=== PATIENT | female | born 1980 | race African-American/Black ===

== ENCOUNTER 2017-03-27 01:25 | Emergency (ER) | payer OTHER ==
[~2017-03-27] VITALS: Ht 175.3 cm; Wt 77.1 kg
[~2017-03-27 01:25] MED LIST: BACTRIM DS TAB1 EACH PO; DOXYCYCLINE 10100 MG PO; NAPROSYN500 MG PO; NOHOMEMEDICATIONS; NORCO 5-325 TA1 EACH PO; TOBRAMYCIN SULFA5 ML OP; TRAMADOL 50 MG50 MG PO
[2017-03-27 01:31] VITALS: BP 131/93
[2017-03-27] MEDS ORDERED: NORCO 5-325 TA1 EACH PO (01:43)
[2017-03-27] MEDS ORDERED: PENICILLIN VK500 M1 PO (01:43)
== END 2017-03-27 01:57 | disposition home or self-care (01) ==
LOC: ER 01:25
DX: K02.9 Dental caries, unspecified (principal); F17.200 Nicotine dependence, unspecified, uncomplicated

== ENCOUNTER 2017-04-22 15:08 | Emergency (ER) | payer OTHER ==
[~2017-04-22] VITALS: Ht 175.3 cm; Wt 77.1 kg
[~2017-04-22 15:08] MED LIST changes: +PENICILLIN VK500 M1 PO
[2017-04-22] MEDS ORDERED: PENICILLIN V P500 MG PO (15:41)
[2017-04-22] MEDS ORDERED: MOBIC15 MG PO (15:41)
[2017-04-22 16:22] VITALS: BP 140/85
== END 2017-04-22 16:23 | disposition home or self-care (01) ==
LOC: ER 15:08
DX: K02.9 Dental caries, unspecified (principal); F17.210 Nicotine dependence, cigarettes, uncomplicated

== ENCOUNTER 2017-05-09 12:48 | Inpatient (IN) | payer OTHER ==
[~2017-05-09] VITALS: Ht 175.3 cm; Wt 92.2 kg
[2017-05-09] VITALS (16 sets, daily range): BP systolic 120–157; BP diastolic 84–102
[~2017-05-09 12:48] MED LIST changes: +CLEOCIN HCL150 MG PO; +MOBIC15 MG PO; +PENICILLIN V P500 MG PO
[2017-05-09 13:18] LABS: ABSOLUTE NEUTROPHILS 13.1 thou/uL (1.4-8.2); BASOPHILS 0.6 % (0.0-2.0); EOSINOPHILS 2.3 % (0.0-3.0); HEMATOCRIT 38.7 % (37.0-47.0); HEMOGLOBIN 13.2 gm/dL (12.0-15.0); LYMPHOCYTES 12.5 % (24.0-44.0); MCH 29.8 pg (26.0-34.0); MCV 87.6 fL (80.0-100.0); MONOCYTES 6.7 % (1.0-8.0); PLATELET COUNT 561 thou/uL (150-400); POLYS 77.9 % (36.0-66.0); RBC 4.42 mil/uL (4.20-5.00); RDW 14.1 % (10.5-14.5); WBC 16.9 thou/uL (4.0-11.0)
[2017-05-09 13:23] LABS: MANUAL DIFF NO
[2017-05-09 13:24] LABS: CALCIUM 9.4 mg/dL (8.5-10.1); CREATININE 0.9 mg/dL (0.6-1.0)
[2017-05-09 13:29] LABS: ALBUMIN 3.1 g/dL (3.4-5.0); TOTAL BILIRUBIN 0.8 mg/dL (<0.1-1.0); TOTAL PROTEIN 7.8 g/dL (6.4-8.2)
[2017-05-10] VITALS (18 sets, daily range): BP systolic 125–150; BP diastolic 74–110
[2017-05-10 04:33] LABS: HEMATOCRIT 38.4 % (37.0-47.0); HEMOGLOBIN 12.9 gm/dL (12.0-15.0); MCHC 33.7 g/dL (28.0-37.0); MCV 89.2 fL (80.0-100.0); RBC 4.3 mil/uL (4.20-5.00); RDW 14.1 % (10.5-14.5); WBC 17.7 thou/uL (4.0-11.0)
[2017-05-10 04:56] LABS: CALCIUM 8.5 mg/dL (8.5-10.1); CREATININE 0.7 mg/dL (0.6-1.0); POTASSIUM 4.1 mmol/L (3.5-5.1)
[2017-05-11 03:50] VITALS: BP 128/75
[2017-05-11 08:00] VITALS: BP 119/73
[2017-05-11 17:38] VITALS: BP 129/86
[2017-05-11 20:00] VITALS: BP 132/89
[2017-05-12 04:00] VITALS: BP 150/88
[2017-05-12 08:35] VITALS: BP 143/93
[2017-05-12 15:36] VITALS: BP 134/69
[2017-05-12 20:00] VITALS: BP 142/88
[2017-05-13 04:00] VITALS: BP 130/80
[2017-05-13 08:30] VITALS: BP 133/89
[2017-05-13] MEDS ORDERED: AUGMENTIN 875-1 EACH PO (14:01)
[2017-05-13] MEDS ORDERED: MEDROLDOSEPACK PO (14:03)
[2017-05-13 14:10] VITALS: BP 133/89
== END 2017-05-13 14:50 | disposition home or self-care (01) | DRG 872 ==
LOC: ER 12:48 → EROBS 14:28 → ICU 14:28 → 5S 05-10 15:52
PROVIDERS: Emergency Medicine; Internal Medicine
DX: A41.9 Sepsis, unspecified organism (principal); L02.11 Cutaneous abscess of neck; L03.211 Cellulitis of face; K12.2 Cellulitis and abscess of mouth; M27.2 Inflammatory conditions of jaws; F17.210 Nicotine dependence, cigarettes, uncomplicated; K04.7 Periapical abscess without sinus; Z79.899 Other long term (current) drug therapy
CPT/HCPCS: 10078; 10785

== ENCOUNTER 2018-02-09 09:45 | Emergency (ER) | payer OTHER ==
[~2018-02-09] VITALS: Ht 175.3 cm; Wt 81.7 kg
[~2018-02-09 09:45] MED LIST changes: +AUGMENTIN 875-1 EACH PO; +IBUPROFEN 600600 M1 PO; +MEDROLDOSEPACK PO
[2018-02-09] MEDS ORDERED: IBU600 MG PO (10:40)
[2018-02-09] MEDS ORDERED: HYDROCODONE-AP1 EAC6 PO (10:40)
== END 2018-02-09 11:47 | disposition home or self-care (01) ==
LOC: ER 09:45
DX: S92.355A Nondisplaced fracture of fifth metatarsal bone, left foot, initial encounter for closed fracture (principal); F17.210 Nicotine dependence, cigarettes, uncomplicated; W18.39XA Other fall on same level, initial encounter; Y93.89 Activity, other specified; Y92.89 Other specified places as the place of occurrence of the external cause; Y99.8 Other external cause status

== ENCOUNTER 2019-08-14 16:24 | Emergency (ER) | payer OTHER ==
[~2019-08-14] VITALS: Ht 175.3 cm; Wt 79.4 kg
[~2019-08-14 16:24] MED LIST changes: +HYDROCODONE-AP1 EAC6 PO; +IBU600 MG PO; +IBUPROFEN 800800 MG PO
[2019-08-14] MEDS ORDERED: ACETAMINOPHEN325 M1 PO (16:43)
[2019-08-14 19:03] LABS: ABSOLUTE NEUTROPHILS 5.8 thou/uL (1.4-8.2); BASOPHILS 0.9 % (0.0-2.0); EOSINOPHILS 4.8 % (0.0-3.0); HEMATOCRIT 41.9 % (37.0-47.0); HEMOGLOBIN 13.7 gm/dL (12.0-15.0); LYMPHOCYTES 20.7 % (24.0-44.0); MCH 29.4 pg (26.0-34.0); MCHC 32.8 g/dL (28.0-37.0); MCV 89.6 fL (80.0-100.0); MONOCYTES 7.8 % (1.0-8.0); PLATELET COUNT 297 thou/uL (150-400); POLYS 65.8 % (36.0-66.0); RBC 4.67 mil/uL (4.20-5.00); RDW 14.6 % (10.5-14.5); WBC 8.7 thou/uL (4.0-11.0)
[2019-08-14 19:11] LABS: CALCIUM 9.6 mg/dL (8.5-10.1); POTASSIUM 4.1 mmol/L (3.5-5.1)
[2019-08-14] MEDS ORDERED: NAPROSYN500 MG PO (20:38)
[2019-08-14] MEDS ORDERED: ULTRAM 50MG TAB50 MG PO (20:38)
[2019-08-14 20:57] LABS: URINE BILIRUBIN NEGATIVE (Negative); URINE BLOOD 3+ (Negative); URINE CLARITY CLEAR; URINE COLOR YELLOW; URINE GLUCOSE-RANDOM* NEGATIVE (Negative); URINE KETONES TRACE (Negative); URINE LEUKOCYTES-REFLEX 1+ (Negative); URINE NITRITE-REFLEX NEGATIVE (Negative); URINE PROTEIN (DIPSTICK) TRACE (Negative); URINE SPECIFIC GRAVITY 1.025 (1.005-1.035)
[2019-08-14 21:10] LABS: BACTERIA-REFLEX 1-9 Few /HPF (None Seen); CASTS None Seen /LPF (None Seen); CRYSTALS None Seen /LPF (None Seen); SQUAMOUS 0-3 Few /LPF (0-3); URINE RBC >20 Many /HPF (0-2); URINE WBC-REFLEX 6-15 Few /HPF (0-5)
[2019-08-14 21:29] VITALS: BP 129/85
== END 2019-08-14 21:30 | disposition home or self-care (01) ==
LOC: ER 16:24
PROVIDERS: Physician Assistant
DX: N93.8 Other specified abnormal uterine and vaginal bleeding (principal); F17.210 Nicotine dependence, cigarettes, uncomplicated

== ENCOUNTER 2019-08-20 18:11 | Emergency (ER) | payer OTHER ==
[~2019-08-20] VITALS: Ht 175.3 cm; Wt 90.7 kg
[~2019-08-20 18:11] MED LIST changes: +ACETAMINOPHEN325 M1 PO; +ULTRAM 50MG TAB50 MG PO
[2019-08-20 19:00] LABS: ABSOLUTE NEUTROPHILS 7.9 thou/uL (1.4-8.2); BASOPHILS 0.6 % (0.0-2.0); EOSINOPHILS 1.1 % (0.0-3.0); HEMATOCRIT 36.2 % (37.0-47.0); HEMOGLOBIN 12.2 gm/dL (12.0-15.0); LYMPHOCYTES 12.1 % (24.0-44.0); MCH 29.5 pg (26.0-34.0); MCHC 33.7 g/dL (28.0-37.0); MCV 87.5 fL (80.0-100.0); MONOCYTES 7.9 % (1.0-8.0); PLATELET COUNT 346 thou/uL (150-400); POLYS 78.3 % (36.0-66.0); RBC 4.14 mil/uL (4.20-5.00); RDW 14.2 % (10.5-14.5); WBC 10.1 thou/uL (4.0-11.0)
[2019-08-20 19:06] LABS: CALCIUM 9.4 mg/dL (8.5-10.1); CREATININE 0.8 mg/dL (0.6-1.0); POTASSIUM 3.9 mmol/L (3.5-5.1)
[2019-08-20] MEDS ORDERED: NOHOMEMEDICATIONS (19:09)
[2019-08-20 19:13] LABS: ALBUMIN 2.7 g/dL (3.4-5.0); DIRECT BILIRUBIN 0.2 mg/dL (<0.1-0.3); TOTAL BILIRUBIN 0.5 mg/dL (<0.1-1.0); TOTAL PROTEIN 7.3 g/dL (6.4-8.2)
[2019-08-20] MEDS ORDERED: PREDNISONE 20 M20 MG PO (21:23)
[2019-08-20 21:26] VITALS: BP 144/87
== END 2019-08-20 21:45 | disposition home or self-care (01) ==
LOC: ER 18:11
PROVIDERS: Nurse Practitioner
DX: R07.81 Pleurodynia (principal); N93.9 Abnormal uterine and vaginal bleeding, unspecified; R11.2 Nausea with vomiting, unspecified; F17.210 Nicotine dependence, cigarettes, uncomplicated

== ENCOUNTER 2019-08-25 16:40 | Emergency (ER) | payer OTHER ==
[~2019-08-25] VITALS: Ht 175.3 cm; Wt 90.7 kg
[~2019-08-25 16:40] MED LIST changes: +PREDNISONE 20 M20 MG PO
[2019-08-25 16:48] VITALS: BP 125/88
== END 2019-08-25 18:05 | disposition home or self-care (01) ==
LOC: ER 16:40
DX: A54.9 Gonococcal infection, unspecified (principal); A74.9 Chlamydial infection, unspecified; F17.210 Nicotine dependence, cigarettes, uncomplicated; Z76.0 Encounter for issue of repeat prescription; Z98.890 Other specified postprocedural states

== ENCOUNTER 2020-08-03 20:29 | Emergency (ER) | payer OTHER ==
[~2020-08-03] VITALS: Ht 175.3 cm; Wt 81.7 kg
[2020-08-03 22:16] LABS: ABSOLUTE NEUTROPHILS 13.1 thou/uL (1.4-8.2); BASOPHILS 0.3 % (0.0-2.0); HEMATOCRIT 39.6 % (37.0-47.0); HEMOGLOBIN 13.1 gm/dL (12.0-15.0); LYMPHOCYTES 14.1 % (24.0-44.0); MCH 29.3 pg (26.0-34.0); MCV 88.8 fL (80.0-100.0); PLATELET COUNT 326 thou/uL (150-400); POLYS 79.6 % (36.0-66.0); RBC 4.46 mil/uL (4.20-5.00); RDW 14.6 % (10.5-14.5); WBC 16.4 thou/uL (4.0-11.0)
[2020-08-03 22:18] LABS: CALCIUM 9.2 mg/dL (8.5-10.1); CREATININE 1.2 mg/dL (0.6-1.0); POTASSIUM 3.7 mmol/L (3.5-5.1)
[2020-08-03 22:23] LABS: ALBUMIN 3.6 g/dL (3.4-5.0); TOTAL BILIRUBIN 1.5 mg/dL (0.2-1.0); TOTAL PROTEIN 8.1 g/dL (6.4-8.2)
[2020-08-03 23:48] LABS: URINE BILIRUBIN NEGATIVE (Negative); URINE BLOOD NEGATIVE (Negative); URINE CLARITY SL CLOUDY; URINE COLOR YELLOW; URINE GLUCOSE-RANDOM* NEGATIVE (Negative); URINE KETONES TRACE (Negative); URINE NITRITE-REFLEX NEGATIVE (Negative); URINE PROTEIN (DIPSTICK) NEGATIVE (Negative); URINE SPECIFIC GRAVITY 1.015 (1.005-1.035); URINE UROBILINOGEN 0.2 E.U./dl (0.2-1.0)
[2020-08-04 00:10] LABS: URINE LEUKOCYTES-REFLEX 1+ (Negative)
[2020-08-04 01:01] LABS: BACTERIA-REFLEX 1-9 Few /HPF (None Seen); CASTS None Seen /LPF (None Seen); CRYSTALS None Seen /LPF (None Seen); MUCUS 4-6 Moderate strn/LPF (None Seen); SQUAMOUS 0-3 Few /LPF (0-3); URINE RBC 3-10 Few /HPF (0-2); URINE WBC-REFLEX 6-15 Few /HPF (0-5); WBC CLUMPS Few (None Seen)
[2020-08-04] MEDS ORDERED: MOBIC15 MG PO (01:08)
[2020-08-04] MEDS ORDERED: KEFLEX500 M1 PO (01:08)
[2020-08-04 01:26] VITALS: BP 153/79
== END 2020-08-04 01:27 | disposition home or self-care (01) ==
LOC: ER 20:29
PROVIDERS: Emergency Medicine
DX: K59.00 Constipation, unspecified (principal); N39.0 Urinary tract infection, site not specified; A59.9 Trichomoniasis, unspecified; F17.210 Nicotine dependence, cigarettes, uncomplicated

== ENCOUNTER 2020-09-10 21:19 | Inpatient (IN) | payer OTHER ==
[~2020-09-10] VITALS: Ht 175.3 cm; Wt 102.5 kg
[~2020-09-10 21:19] MED LIST changes: +KEFLEX500 M1 PO
[2020-09-10 21:29] VITALS: BP 128/84
[2020-09-10 21:41] LABS: URINE BILIRUBIN NEGATIVE (Negative); URINE BLOOD 3+ (Negative); URINE CLARITY SL CLOUDY; URINE COLOR YELLOW; URINE GLUCOSE-RANDOM* NEGATIVE (Negative); URINE KETONES NEGATIVE (Negative); URINE LEUKOCYTES-REFLEX 2+ (Negative); URINE NITRITE-REFLEX NEGATIVE (Negative); URINE PROTEIN (DIPSTICK) 2+ (Negative); URINE SPECIFIC GRAVITY 1.015 (1.005-1.035)
[2020-09-10 21:48] LABS: CASTS None Seen /LPF (None Seen); CRYSTALS None Seen /LPF (None Seen); SQUAMOUS 4-10 Moderate /LPF (0-3)
[2020-09-10 21:49] LABS: BACTERIA-REFLEX 1-9 Few /HPF (None Seen); URINE RBC >20 Many /HPF (0-2); URINE WBC-REFLEX >25 Many /HPF (0-5)
[2020-09-10 21:58] LABS: ABSOLUTE NEUTROPHILS 10.6 thou/uL (1.4-8.2); BASOPHILS 0.5 % (0.0-2.0); EOSINOPHILS 0.1 % (0.0-3.0); HEMATOCRIT 39.6 % (37.0-47.0); LYMPHOCYTES 11.5 % (24.0-44.0); MCHC 32.9 g/dL (28.0-37.0); MCV 88.3 fL (80.0-100.0); MONOCYTES 6.8 % (1.0-8.0); PLATELET COUNT 256 thou/uL (150-400); POLYS 81.1 % (36.0-66.0); RBC 4.48 mil/uL (4.20-5.00); RDW 14.9 % (10.5-14.5)
[2020-09-10 22:07] LABS: CALCIUM 9.2 mg/dL (8.5-10.1); CREATININE 1.3 mg/dL (0.6-1.0); POTASSIUM 4.3 mmol/L (3.5-5.1)
[2020-09-10 22:13] LABS: ALBUMIN 3.3 g/dL (3.4-5.0); TOTAL BILIRUBIN 1.2 mg/dL (0.2-1.0); TOTAL PROTEIN 7.7 g/dL (6.4-8.2)
[2020-09-11] VITALS (7 sets, daily range): BP systolic 127–158; BP diastolic 59–94
--- NOTE | 2020-09-11 02:00 | NUR ---
Pt. admitted to the unit from the emergency room accompanied by staff. She is alert and oriented. Admission assessment and history is completed. Pt. c/o pain to right lateral side of her abdomen/back. After pt. settled to her room she did rest quietly.
[2020-09-11 09:47] LABS: HEMATOCRIT 35.3 % (37.0-47.0); HEMOGLOBIN 11.6 gm/dL (12.0-15.0); MCH 28.9 pg (26.0-34.0); MCHC 32.9 g/dL (28.0-37.0); MCV 87.7 fL (80.0-100.0); RBC 4.03 mil/uL (4.20-5.00); RDW 14.9 % (10.5-14.5); WBC 10.3 thou/uL (4.0-11.0)
[2020-09-11 09:58] LABS: CALCIUM 8.4 mg/dL (8.5-10.1); CREATININE 1.2 mg/dL (0.6-1.0); POTASSIUM 3.7 mmol/L (3.5-5.1)
--- NOTE | 2020-09-11 14:48 | NUR ---
ASSUMED PT CARE THIS AM. PT VSS, HAD AN ELEVATED TEMP THIS AM, GIVEN TYLENOL AND DECREASED. PT COMPLAINS OF PAIN IN THE RIGHT LOWER QUADRANT OF ABDOMEN, GIVEN PAIN MEDS PER EMAR AND RESPONDS WELL. PT TOLERATING FOOD WELL, DRINKING LOTS OF FLUIDS. PT AMBULATES TO THE BATHROOM. LOW FALL RISK. IV PATENT, FLUIDS INFUSING.
--- NOTE | 2020-09-12 06:00 | NUR ---
Pt. has rested quietly at short intervals during the night when checked on during frequent rounds. She c/o pain to her right side of lower abdomen that radiates to her back. Po and iv pain meds given with some relief (see emar). Ambulates to the bathroom with stand by assistance.
[2020-09-12 09:07] LABS: HEMOGLOBIN 11.5 gm/dL (12.0-15.0); MCH 28.6 pg (26.0-34.0); MCHC 32.7 g/dL (28.0-37.0); MCV 87.5 fL (80.0-100.0); RDW 14.6 % (10.5-14.5); WBC 7.4 thou/uL (4.0-11.0)
[2020-09-12 09:22] LABS: CALCIUM 8.4 mg/dL (8.5-10.1); CREATININE 0.9 mg/dL (0.6-1.0); MAGNESIUM 1.8 mg/dL (1.8-2.4); POTASSIUM 4.2 mmol/L (3.5-5.1)
--- NOTE | 2020-09-12 11:47 | NUR ---
ASSUMED CARE AT SHIFT CHANGE. ASSESSMENT PER CHART. REPORT GIVEN TO BRADLEY FISHER AT THIS TIME MY ASSIGNMENT HAS CHANGED.
[2020-09-12 17:07] VITALS: BP 140/93
[2020-09-12 17:08] VITALS: BP 159/77
[2020-09-12 19:55] VITALS: BP 143/89
--- NOTE | 2020-09-12 20:04 | NUR ---
ASSUMED CARE OF PATIENT AT 1200, REPORT RECEIVED FROM LISA/RN. PATIENT ALERT AND ORIENTED X 4. PATIENT SLEEPING UPON ARRIVAL TO THE ROOM. PATIENT WOKE UP CRYING, PAIN LEVEL 10/10, RIGHT SIDE OF ABDOMEN, FENTANYL 50 MCG IV GIVEN. NS AY 125CC/HR GOING PER RIGHT AC IV. PATIENT C/O NAUSEA AND PAIN AROUND 1745, ZOFRAN 4 MG IV GIVEN, AND HYDROCODONE 2 TABLETS GIVEN, PATIENT CONTINUES TO CRY, REAASURANCE GIVEN. PATIENT UP AD ALEXIS TO BATHROOM. REPORT GIVEN TO YARON/RN.
--- NOTE | 2020-09-12 22:16 | NUR ---
1900 ASSUMED CARE OF PT AFTER BEDSIDE REPORT. 1999 PT IS IN PAIN, 10/10 TO R ABDOMEN WITH MOVEMENT, BASELINE ASSESSMENT COMPLETED AND FENTANYL PER DR ORDER HAS HELPED WITH PAIN AND PT HAS EASED TO SLEEP. WILL CONTINUE TO MONITOR WITH HOURLY ROUNDING
[2020-09-13 06:57] LABS: HEMATOCRIT 34.9 % (37.0-47.0); HEMOGLOBIN 11.4 gm/dL (12.0-15.0); MCH 28.7 pg (26.0-34.0); MCHC 32.8 g/dL (28.0-37.0); MCV 87.5 fL (80.0-100.0); RBC 3.98 mil/uL (4.20-5.00); RDW 14.4 % (10.5-14.5); WBC 7.8 thou/uL (4.0-11.0)
[2020-09-13 07:05] LABS: CALCIUM 8.6 mg/dL (8.5-10.1); CREATININE 0.8 mg/dL (0.6-1.0); MAGNESIUM 1.9 mg/dL (1.8-2.4); POTASSIUM 4.1 mmol/L (3.5-5.1)
[2020-09-13 07:11] VITALS: BP 139/82
--- NOTE | 2020-09-13 11:06 | NUR ---
ASSUMED PT CARE THIS AM. PT VSS, A&OX4. PT AMBULATORY TO THE BATHROOM. PT PAIN MANAGED WITH MEDS PER EMAR. PT GIVEN ICE PACK FOR STIFF NECK. PT DRINKING FLUIDS WELL. IV PATENT, FLUIDS INFUSING. PT SLEEPING AT THE MOMENT.
--- NOTE | 2020-09-13 11:58 | NUR ---
PATIENT WAS COOPERATIVE WHEN PROVIDING CARE. PATIENT IS STILL COMPLAINING OF RIGHT FLANK PAIN AND RATES HER PAIN AN 8/10.
--- NOTE | 2020-09-13 12:20 | NUR ---
I have reviewed the student documentation.
[2020-09-13 15:20] VITALS: BP 148/92
[2020-09-13 19:52] VITALS: BP 151/95
--- NOTE | 2020-09-14 02:40 | NUR ---
PT CARE ASSSUMED WITH PT IN BED WATCHING TV AT 1915.PT IS A/OX4.PT IS UP AD ALEXIS.PT C/O PAIN AND PAIN MANAGED WITH HYDROCODONE AND FENTANYL WITH RELIEF.PT IS ON ROOM AIR AND IV ACCESS ON RT FOREARM WITH NS AT 125CC/HR.WILL CONTINUE TO MONITOR
[2020-09-14 07:28] VITALS: BP 146/95
[2020-09-14] MEDS ORDERED: KEFLEX500 M1 PO (11:00)
[2020-09-14] MEDS ORDERED: HYDROCODON-ACE1 EAC7 PO (11:01)
[2020-09-14 11:58] VITALS: BP 146/95
--- NOTE | 2020-09-14 12:35 | NUR ---
ASSUMED PT CARE THIS AM. PT VSS, A&OX4. PT IV REPLACED THIS AM, PULLED OUT WHEN AMBULATING TO THE RESTROOM. NEW IV PLACED IN THE RIGHT FOREARM. FLUIDS INFUSING WELL. PT ON TELE, RUNNING NSR. PT TOOK A SHOWER THIS AM INDEPENDENTLY. PT DISCHARGED TO HOME WITH NO FURTHER COMPLAINTS. BELONGINGS TAKEN WITH PATIENT, TELE AND IV REMOVED. PT OFF UNIT AT 1240.
== END 2020-09-14 12:27 | disposition home or self-care (01) | DRG 871 ==
LOC: ER 21:19 → 4W 09-11 01:07 → EROBS 09-11 01:07 → 4W 09-11 01:49
PROVIDERS: Nurse Practitioner Family; Physician Assistant; Student in an Organized Health Care Education/Training Program; ADMIT Internal Medicine; ATTEND Internal Medicine
DX: A41.9 Sepsis, unspecified organism (principal); N17.0 Acute kidney failure with tubular necrosis; N12 Tubulo-interstitial nephritis, not specified as acute or chronic; Z79.899 Other long term (current) drug therapy; Z87.442 Personal history of urinary calculi; Z23 Encounter for immunization
CPT/HCPCS: 10045

== ENCOUNTER 2020-10-26 21:08 | Emergency (ER) | payer OTHER ==
[~2020-10-26] VITALS: Ht 175.3 cm; Wt 83.9 kg
[~2020-10-26 21:08] MED LIST changes: +HYDROCODON-ACE1 EAC7 PO
[2020-10-26 23:17] LABS: ABSOLUTE NEUTROPHILS 4.4 thou/uL (1.4-8.2); BASOPHILS 1.3 % (0.0-2.0); EOSINOPHILS 4.5 % (0.0-3.0); HEMATOCRIT 41.3 % (37.0-47.0); HEMOGLOBIN 13.6 gm/dL (12.0-15.0); LYMPHOCYTES 33.1 % (24.0-44.0); MCH 29.2 pg (26.0-34.0); MCV 88.3 fL (80.0-100.0); MONOCYTES 6.2 % (1.0-8.0); PLATELET COUNT 355 thou/uL (150-400); POLYS 54.9 % (36.0-66.0); RBC 4.68 mil/uL (4.20-5.00); RDW 15.9 % (10.5-14.5); WBC 7.9 thou/uL (4.0-11.0)
[2020-10-26 23:34] LABS: ANION GAP 4 mmol/L (7-16); BUN 10 mg/dL (7-18); CHLORIDE 102 mmol/L (98-107); CO2 29 mmol/L (21-32); CREATININE 1.1 mg/dL (0.6-1.0); GLUCOSE 96 mg/dL (74-106); LIPASE 228 U/L (73-393); POTASSIUM 3.9 mmol/L (3.5-5.1); SODIUM 135 mmol/L (136-145); TROPONIN-I <0.06 ng/mL (<0.06)
[2020-10-26 23:48] LABS: CALCIUM 9.6 mg/dL (8.5-10.1)
[2020-10-27] MEDS ORDERED: FLEXERIL PO (01:02)
[2020-10-27 01:06] VITALS: BP 145/99
--- NOTE | 2020-10-28 13:36 | EKG ---
[place] [id number] [facility] [place] [address] ELECTROCARDIOGRAM REPORT Name: ED DELGADO Room #: [facility]#: [id number] Admission: 10/26/20 Attend Phys: Discharge: 10/27/20 Date of : 84 Report #: [id number] [facility] ED Test Date: 2020-10-26 Test Time: 21:17:09 Pat Name: ED DELGADO Department: Room: Gender: F Medical Staff Specialist: YOSI : 1980 Requested By: Michael Duran Order Number: [id number] MD: Tor Oh Measurements Intervals Bolt Rate: 114 P: 73 SD: 126 QRS: -58 QRSD: 88 T: 74 QT: 325 QTc: 448 Interpretive Statements Sinus tachycardia Left atrial enlargement Abnormal R-wave progression, late transition Probable left ventricular hypertrophy Inferior infarct, old Compared to ECG 12/16/2011 14:52:59 Electronically Signed On 10-28-2020 13:36:43 DESKTOP TECHNICIAN by Tor Oh [email or web address] <ELECTRONICALLY SIGNED> By: Tor Oh MD 10/28/20 1336 16 16 Tor Oh MD /DELIA
== END 2020-10-27 01:14 | disposition home or self-care (01) ==
LOC: ER 21:08
PROVIDERS: Emergency Medicine
DX: R07.89 Other chest pain (principal); R10.13 Epigastric pain; F17.210 Nicotine dependence, cigarettes, uncomplicated; V49.9XXA Car occupant (driver) (passenger) injured in unspecified traffic accident, initial encounter; Y93.89 Activity, other specified; Y92.89 Other specified places as the place of occurrence of the external cause; Y99.8 Other external cause status

== ENCOUNTER 2020-12-14 14:38 | Emergency (ER) | payer OTHER ==
[~2020-12-14] VITALS: Ht 175.3 cm; Wt 81.7 kg
[~2020-12-14 14:38] MED LIST changes: +FLEXERIL PO
[2020-12-14] MEDS ORDERED: NORCO7.5 PO (15:43)
[2020-12-14] MEDS ORDERED: KEFLEX500 M1 PO (15:43)
[2020-12-14] MEDS ORDERED: IBUPROFEN 800800 M1 PO (15:43)
[2020-12-14 16:15] VITALS: BP 141/80
== END 2020-12-14 16:15 | disposition home or self-care (01) ==
LOC: ER 14:38
DX: T33.531A Superficial frostbite of right finger(s), initial encounter (principal); F17.210 Nicotine dependence, cigarettes, uncomplicated; W93.01XA Contact with dry ice, initial encounter; Y93.89 Activity, other specified; Y92.89 Other specified places as the place of occurrence of the external cause; Y99.8 Other external cause status

== ENCOUNTER 2020-12-26 20:47 | Emergency (ER) | payer OTHER ==
[~2020-12-26] VITALS: Ht 175.3 cm; Wt 83.9 kg
[~2020-12-26 20:47] MED LIST changes: +IBUPROFEN 800800 M1 PO; +NORCO7.5 PO
[2020-12-26 20:52] VITALS: BP 179/111
[2020-12-26] MEDS ORDERED: KEFLEX500 M1 PO (21:07)
[2020-12-26] MEDS ORDERED: NORCO 10-325 T1 EACH PO (21:07)
== END 2020-12-26 21:28 | disposition home or self-care (01) ==
LOC: ER 20:47
DX: T33.521A Superficial frostbite of right hand, initial encounter (principal); F17.210 Nicotine dependence, cigarettes, uncomplicated; Z79.2 Long term (current) use of antibiotics; Z79.899 Other long term (current) drug therapy; X31.XXXA Exposure to excessive natural cold, initial encounter; Y93.89 Activity, other specified; Y92.89 Other specified places as the place of occurrence of the external cause; Y99.8 Other external cause status

== ENCOUNTER 2021-04-04 23:36 | Emergency (ER) | payer OTHER ==
[~2021-04-04] VITALS: Ht 175.3 cm; Wt 77.1 kg
[~2021-04-04 23:36] MED LIST changes: +NORCO 10-325 T1 EACH PO
[2021-04-04] MEDS ORDERED: NOHOMEMEDICATIONS (23:44)
[2021-04-04 23:58] LABS: URINE BILIRUBIN 1+ (Negative); URINE BLOOD 2+ (Negative); URINE CLARITY CLEAR; URINE COLOR YELLOW; URINE GLUCOSE-RANDOM* NEGATIVE (Negative); URINE KETONES TRACE (Negative); URINE NITRITE-REFLEX NEGATIVE (Negative); URINE PROTEIN (DIPSTICK) 2+ (Negative)
[2021-04-05 00:05] LABS: URINE LEUKOCYTES-REFLEX 1+ (Negative)
[2021-04-05 00:59] LABS: CASTS None Seen /LPF (None Seen); CRYSTALS None Seen /LPF (None Seen); MUCUS >6 Heavy strn/LPF (None Seen); SQUAMOUS 0-3 Few /LPF (0-3); URINE WBC-REFLEX 6-15 Few /HPF (0-5)
[2021-04-05] MEDS ORDERED: MACROBID 100 M100 M1 PO (01:12)
[2021-04-05 01:26] VITALS: BP 149/103
== END 2021-04-05 01:20 | disposition home or self-care (01) ==
LOC: ER 23:36
PROVIDERS: Emergency Medicine
DX: N39.0 Urinary tract infection, site not specified (principal); F17.210 Nicotine dependence, cigarettes, uncomplicated; Z87.442 Personal history of urinary calculi; Z79.899 Other long term (current) drug therapy

== ENCOUNTER 2021-12-13 19:08 | Emergency (ER) | payer OTHER ==
[~2021-12-13] VITALS: Ht 175.3 cm; Wt 81.7 kg
[~2021-12-13 19:08] MED LIST changes: +MACROBID 100 M100 M1 PO
[2021-12-13 20:35] LABS: HEMATOCRIT 41.2 % (37.0-47.0); HEMOGLOBIN 13.9 gm/dL (12.0-15.0); MCH 29.5 pg (26.0-34.0); MCHC 33.8 g/dL (28.0-37.0); MCV 87.2 fL (80.0-100.0); RBC 4.72 mil/uL (4.20-5.00); RDW 15.3 % (10.5-14.5); WBC 6.2 thou/uL (4.0-11.0)
[2021-12-13 20:43] LABS: CALCIUM 9.3 mg/dL (8.5-10.1); POTASSIUM 3.9 mmol/L (3.5-5.1)
[2021-12-13 20:50] LABS: ALBUMIN 3.1 g/dL (3.4-5.0); TOTAL BILIRUBIN 0.5 mg/dL (0.2-1.0); TOTAL PROTEIN 6.9 g/dL (6.4-8.2)
[2021-12-13 21:31] LABS: URINE BILIRUBIN NEGATIVE (Negative); URINE BLOOD NEGATIVE (Negative); URINE CLARITY CLEAR; URINE COLOR YELLOW; URINE GLUCOSE-RANDOM* NEGATIVE (Negative); URINE KETONES TRACE (Negative); URINE LEUKOCYTES-REFLEX NEGATIVE (Negative); URINE NITRITE-REFLEX NEGATIVE (Negative); URINE PROTEIN (DIPSTICK) TRACE (Negative); URINE SPECIFIC GRAVITY >= 1.030 (1.005-1.035)
[2021-12-13] MEDS ORDERED: ZOFRAN ODT4 MG PO (21:48)
[2021-12-13 22:04] VITALS: BP 129/68
== END 2021-12-13 22:10 | disposition home or self-care (01) ==
LOC: ER 19:08
PROVIDERS: Nurse Practitioner Family
DX: B34.9 Viral infection, unspecified (principal); Z20.822 Contact with and (suspected) exposure to COVID-19; E86.0 Dehydration; F17.210 Nicotine dependence, cigarettes, uncomplicated; Z87.442 Personal history of urinary calculi; Z79.899 Other long term (current) drug therapy